=== PATIENT | female | born 1990 | race African-American/Black ===

== ENCOUNTER 2019-05-14 23:41 | Emergency (ER) | payer MEDICAID ==
[~2019-05-14] VITALS: Ht 162.6 cm; Wt 104.0 kg
[2019-05-15] MEDS: SODIUM CHLORIDE 0.9% 1,000 ML IV ONE (06:43)
[2019-05-15] MEDS: KETOROLAC 30MG/ML VIAL IV STA (06:47)
[2019-05-15] MEDS: ONDANSETRON HCL 4MG/2ML INJ IV STA (06:47)
[2019-05-15 07:05] LABS: CLARITY URINE CLOUDY (CLEAR); COLOR URINE DARK YELLOW (YELLOW); KETONES URINE 4+ (NEGATIVE); LEUKOCYTE ESTERASE URINE TRACE (NEGATIVE); NITRITE URINE POSITIVE (NEGATIVE); OCCULT BLOOD URINE NEGATIVE (NEGATIVE); PROTEIN URINE 3+ (NEGATIVE); SPECIFIC GRAVITY URINE 1.034 (1.005-1.030)
[2019-05-15] MEDS: DICYCLOMINE 10 MG/5 ML ORAL SYR PO STA (09:07)
[2019-05-15] MEDS: VISCOUS LIDOCAINE 2% 15 ML UDC PO STA (09:07)
[2019-05-15] MEDS: MAGNESIUM/ALUMINUM HYDROXIDE/SIMETHICONE 30ML UDC PO STA (09:09)
[2019-05-15 09:36] LABS: BASOPHILS % 0.3 % (0.0-2.0); EOSINOPHILS % 0.1 % (0.0-5.0); HEMOGLOBIN. 13.8 g/dL (12.0-16.0); LYMPHOCYTES % 27.7 % (20.0-50.0); MEAN PLATELET VOLUME 9.3 fl (7.4-10.4); MONOCYTES % 14.5 % (2.0-8.0); NEUTROPHILS % 57.4 % (40.0-76.0); PLATELET 246 x1000/uL (130-400); RED BLOOD CELL COUNT 4.78 mill/uL (4.2-5.4); RED CELL DISTRIBUTION WIDTH 13.4 % (11.6-14.6)
[2019-05-15 09:45] LABS: CHLORIDE 103 mEq/L (98-107)
[2019-05-15] MEDS: POTASSIUM CHLORIDE 20MEQ TABLET SR PO ONE (10:55)
[2019-05-15] MEDS: ONDANSETRON 4MG ODT PO ONE (11:01)
[2019-05-15 11:45] VITALS: BP 113/70
== END 2019-05-15 11:49 | disposition home or self-care (01) ==
LOC: ER 23:41
DX: N30.90 Cystitis, unspecified without hematuria (principal); R11.2 Nausea with vomiting, unspecified; E87.6 Hypokalemia
CPT/HCPCS: 36415; 71045; 80053; 81003; 81025; 83690; 85025; 96361; 96374; 96375; 99284; J1885; J2405; J7030; Q0162; Z7610

== ENCOUNTER 2023-03-27 07:33 | Emergency (ER) | payer MEDICAID ==
[~2023-03-27] VITALS: Ht 160 cm; Wt 64.0 kg
[2023-03-27 07:47] VITALS: O2SAT 100
[2023-03-27 08:45] LABS: BASOPHILS % 0.3 % (0.0-2.0); EOSINOPHILS % 0.7 % (0.0-5.0); HEMATOCRIT. 39.7 % (36.0-48.0); HEMOGLOBIN. 12.8 g/dL (12.0-16.0); LYMPHOCYTES % 31.2 % (20.0-50.0); MEAN CORPUSCULAR HEMOGLOBIN 29.8 pg (28.0-32.0); MEAN CORPUSCULAR HGB CONC 32.2 g/dL (31.0-37.0); MEAN CORPUSCULAR VOLUME 92.4 fL (81.0-99.0); MEAN PLATELET VOLUME 8.4 fl (7.4-10.4); MONOCYTES % 6.4 % (2.0-8.0); NEUTROPHILS % 61.4 % (40.0-76.0); PLATELET 385 x1000/uL (130-400); RED CELL DISTRIBUTION WIDTH 13.9 % (11.6-14.6); WHITE BLOOD COUNT 7.7 x1000/uL (4.5-11.0)
[2023-03-27 08:46] LABS: PROTHROMBIN TIME 10.9 sec (9.6-11.0)
[2023-03-27 08:48] LABS: CHLORIDE 105 mEq/L (98-107); INDEX HEMOLYSI 1 (1-3); INDEX ICTERIC 1 (1-4); INDEX LIPEMIC 1 (1-3); POTASSIUM 3.4 mEq/L (3.5-5.1); SODIUM 141 mEq/L (136-145)
[2023-03-27 08:49] LABS: AMMONIA 13 uMol/L (<32)
[2023-03-27 08:57] LABS: ALANINE AMINOTRANSFERASE 14 IU/L (13-61); ALBUMIN 3.9 g/dL (3.4-5.0); ASPARTATE AMINOTRANSFERASE 7 IU/L (15-37); BILIRUBIN TOTAL 0.4 mg/dL (0.1-1.0); CALCIUM 9.3 mg/dL (8.5-10.1); CARBON DIOXIDE 32 mEq/L (21-32); CREATININE 0.8 mg/dL (0.6-1.3); ETHANOL BLOOD < 10 mg/dL (<10); GLUCOSE 95 mg/dL (70-105); PROTEIN TOTAL 8.4 g/dL (6.0-8.3); UREA NITROGEN BLOOD 6 mg/dL (7-21)
[2023-03-27 08:58] LABS: CLARITY URINE CLEAR (CLEAR); COLOR URINE YELLOW (YELLOW); GLUCOSE URINE NEGATIVE (NEGATIVE); KETONES URINE NEGATIVE (NEGATIVE); LEUKOCYTE ESTERASE URINE 2+ (NEGATIVE); NITRITE URINE NEGATIVE (NEGATIVE); OCCULT BLOOD URINE NEGATIVE (NEGATIVE); PH URINE 8.5 (4.5-8.0); PROTEIN URINE NEGATIVE (NEGATIVE); SPECIFIC GRAVITY URINE 1.007 (1.005-1.030)
[2023-03-27 09:09] LABS: TROPONIN I HIGH SENSITIVITY < 4 ng/L (<54)
[2023-03-27 09:11] LABS: HCG SCREEN NEGATIVE
[2023-03-27 09:14] LABS: SQUAMOUS EPITHELIAL CELL URINE RARE /lpf (RARE/1+)
[2023-03-27 09:15] LABS: BACTERIA URINE TRACE; RBC URINE 0-2 /hpf (0-2); WBC URINE 0-2 /hpf (0-2)
[2023-03-27] MEDS ORDERED: SODIUM CHLORIDE 0.9% IV ONE (11:45)
[2023-03-27 15:55] VITALS: BP 113/64; PULSE 62; RESP 12; TEMP 98.6
== END 2023-03-27 16:46 | disposition short-term general hospital (02) ==
LOC: ER 07:54
DX: R55 Syncope and collapse (principal)
CPT/HCPCS: 80053; 81003; 81025; 80320; 82140; 84703; 83605; 85025; 85610; 84484; 36415; 71045; 70450; 93005; 96360; 99291; J7030; G0480